=== PATIENT | female | born 1980 | race Caucasian/White ===

== ENCOUNTER 2016-07-26 12:20 | Emergency (ER) | payer OTHER ==
[~2016-07-26] VITALS: Ht 154.9 cm; Wt 55.3 kg
[~2016-07-26 12:20] MED LIST: FIORICET1 EA ORAL; KEFLEX500 MG ORAL; PEPCID20 MG ORAL; ROBAXIN500 MG PO; VISTARIL50 MG ORAL
[2016-07-26] MEDS ORDERED: GABAPENTIN100 MG ORAL (12:39)
[2016-07-26 12:59] VITALS: BP 110/72
[2016-07-26] MEDS ORDERED: Ketorolac 60mg Inj IM ONE (13:15)
--- NOTE | 2016-07-26 13:20 | Emergency Room Report ---
History of Present Illness General Chief Complaint: General Complaint Source: Patient Present Illness HPI 36-year-old male presents emergency department complaining of constant with intermittent exacerbations of pain shooting from the right axilla and to the top of the right breast x3 days. Patient denies injury or fall or appreciable straining. 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 Patient denies erythema, fevers, increased temperature palpation about the area. Patient states she is currently on her period and she does usually get some breast tenderness however she states that the area of her pain is unusual to her she typically has tenderness. She states pain is exacerbated with palpation, or movement of the right arm. She also reports soft tissue swelling in the posterior left knee x2 weeks. Patient denies calf tenderness, she denies taking control supplementation and denies recent travel denies swelling of the lower extremity. Pt also reports increased frequency with urination, denies dysuria , denies d/c, denies hx of lesions or sti. denies as she is on her period. Patient denies pain at the site behind the knee. Denies CP, Palpitations, LOC, AMS, dizziness, Changes in Vision, Sensation , paresthesias, or a sudden severe headache. Allergies: Coded Allergies: No Known Allergies (Unverified , 09/22/15) Patient History Past Medical History: see triage record Past Surgical History: none Pertinent Family History: none Last Menstrual Period: on period Now: No Immunizations: UTD Reviewed Nursing Documentation: PMH: Agreed, PSxH: Agreed Nursing Documentation-PM Past Medical History: No History, Except For Hx Neurological Problems: Yes - headache Review of Systems All Other Systems: negative except mentioned in HPI Physical Exam Vital Signs Date Time Temp Pulse Resp B/P Pulse Ox O2 Delivery O2 Flow Rate FiO2 07/26/16 12:35 99.0 83 16 105/68 100 Room Air Sp02 EP Interpretation: reviewed, normal General Appearance: no apparent distress, alert, GCS 15, non-toxic Head: normocephalic, atraumatic Eyes: bilateral eye PERRL, bilateral eye normal inspection ENT: hearing grossly normal, normal pharynx, no angioedema, normal voice Neck: full range of motion, supple/symm/no masses Respiratory: chest non-tender, lungs clear, normal breath sounds, speaking full sentences Cardiovascular #1: regular rate, rhythm, no edema Cardiovascular #2: 2+ radial (R), 2+ radial (L) Gastrointestinal: normal bowel sounds, non tender, soft, no guarding, no rebound Rectal: deferred Genitourinary: normal inspection, no CVA tenderness Musculoskeletal: back normal, gait/station normal, normal range of motion, no calf tenderness, other - palpable soft tissue swelling localized in the posterior knee, no pain, no palpable pulse. , tender - TTP to the right Pectoralis muscle, no erythema, no bruising, no lesions or masses, no LAD. Neurologic: alert, oriented x3, responsive, motor strength/tone normal, sensory intact, speech normal Psychiatric: judgement/insight normal, memory normal, mood/affect normal, no suicidal/homicidal ideation Skin: normal color, no rash, warm/dry, well hydrated Lymphatic: no adenopathy Medical Decision Making PA Attestation Dr. corbett is my supervising Physician whom patient management has been discussed with. Diagnostic Impression: Primary Impression: Pectoralis major tendinitis Qualified Codes: M75.81 - Other shoulder lesions, right shoulder Additional Impression: Kaur's cyst of knee Qualified Codes: M71.22 - Synovial cyst of popliteal space [Kaur], left knee ER Course Pt. presents to the ED c/o 1 pain shooting from the right axilla and to the top of the right breast x3 days. 2) swelling to posterior left knee, no trauma, no pain, size of swelling changes intermittently and at times goes completely away. 3) frequency with urination. Ddx considered but are not limited to Fracture, dislocation, contusion, Sprain/ Strain/Spasm, kaur cyst, popliteal artery aneurysm. Vital signs: are WNL, pt. is afebrile H&PE are most consistent with backers cyst of the left knee, and myositis/ tendinitis of the pectoral muscle, given this pain is reproducible upon examination and lack of cardiac RF, cardiac pathology is of low suspicion at this time. no evidence of infection. ORDERS: - US not required, as DVT is not suspected, no palpable artery noted, and there is no symptom of pain. US imaging to confirm bakers cyst can be performed as an outpatient. d/w pt. and she agrees with proposed follow up plan. -UA: unremarkable, no evidence of infection., evidence of RBC's and occult blood consistent with being on period. ED INTERVENTIONS: - Bandar wrap is applied to the left knee by instructor technical training. pt. remained NVI both before and after application. DISCHARGE: At this time pt. is stable for d/c to home. Will provide printed patient care instructions, and any necessary prescriptions. Care plan and follow up instructions have been discussed with the patient prior to discharge. Labs Test 07/26/16 13:02 Urine Color Yellow Urine Appearance Clear Urine pH 7.0 (4.5-8.0) Urine Specific [place] 1.010 (1.005-1.035) Urine Protein Negative (NEGATIVE) Urine Glucose (UA) Negative (NEGATIVE) Urine Ketones Negative (NEGATIVE) Urine Occult Blood 3+ (NEGATIVE) Urine Nitrite Negative (NEGATIVE) Urine Bilirubin Negative (NEGATIVE) Urine Urobilinogen Normal MG/DL (0.0-1.0) Urine Leukocyte Esterase Negative (NEGATIVE) Urine RBC 5-10 /HPF (0 - 2) Urine WBC 2-4 /HPF (0 - 2) Urine Squamous Epithelial Cells Few /LPF (NONE/OCC) Urine Bacteria Few /HPF (NONE) Last Vital Signs Date Time Temp Pulse Resp B/P Pulse Ox O2 Delivery O2 Flow Rate FiO2 07/26/16 12:59 98.8 80 16 110/72 99 Room Air Disposition: HOME, SELF-CARE Condition: Stable Scripts Ibuprofen* (MOTRIN*) 600 Mg Tablet 600 MG ORAL THREE TIMES A DAY, #30 TAB 0 Refills Prov: Ellyn Lorenz 07/26/16 Patient Instructions: Kaur Cyst, Tendinitis Additional Instructions: Take medications as directed. You are currently stable for close Outpatient Follow up with PCP in 3-5 days Return sooner to ED if new symptoms occur, or current symptoms become worse. Ellyn Lorenz Jul 26, 2016 13:20
[2016-07-26 13:54] LABS: APPEARANCE,URINE CLEAR
[2016-07-26 13:55] LABS: BACTERIA,URINE FEW /HPF; KETONES,URINE NEGATIVE (NEGATIVE); LEUKOCYTE ESTERASE ,URINE NEGATIVE (NEGATIVE); NITRITE,URINE NEGATIVE (NEGATIVE); PROTEIN,URINE NEGATIVE (NEGATIVE); SQUAMOUS EPITHELIAL CELL,UR FEW /LPF (NONE/OCC); UROBILINOGEN,URINE NORMAL MG/DL (0.0-1.0)
[2016-07-26] MEDS ORDERED: IBUPROFEN600 MG ORAL (13:57)
[2016-07-26 14:15] VITALS: BP 109/69
== END 2016-07-26 14:12 | disposition home or self-care (01) ==
LOC: EMR 14:11
DX: M77.8 Other enthesopathies, not elsewhere classified (principal); M71.22 Synovial cyst of popliteal space [Baker], left knee; R35.0 Frequency of micturition
CPT/HCPCS: 81003; 96372; 99283

== ENCOUNTER 2016-09-03 12:05 | Emergency (ER) | payer OTHER ==
[~2016-09-03] VITALS: Ht 154.9 cm; Wt 55.3 kg
[~2016-09-03 12:05] MED LIST changes: +GABAPENTIN100 MG ORAL; +IBUPROFEN600 MG ORAL
--- NOTE | 2016-09-03 12:23 | Emergency Room Report ---
History of Present Illness General Chief Complaint: General Complaint Source: Patient Present Illness HPI 36 YO Female presents to the ED c/o fatigue, weakness, and PCP wants her evaluated for anemia, pt. has nausea, no vomiting, intermittent RUQ abdominal pain. Pt. also states hx of GERD and H.Pylori and states she is having 7/10 in severity burning epigastric pain radiating up into the throat and towards her back worse at night x 1 week. Pt denies recent URI or illness. Pt states she was told she is low ferritin. denies hx of cardiac disease, no familial cardiac diseases. Pt. denies . denies recent travel or ill contacts. Pt also reports recurrent slowly progressive GUERRA rated as 8/10 in severity Denies CP, Palpitations, LOC, AMS, dizziness, Changes in Vision, Sensation, paresthesias, or a sudden severe headache. Allergies: Coded Allergies: No Known Allergies (Unverified , 09/22/15) Patient History Past Medical History: see triage record Past Surgical History: none Pertinent Family History: none Immunizations: UTD Reviewed Nursing Documentation: PMH: Agreed, PSxH: Agreed Nursing Documentation-PMH Past Medical History: No Stated History Hx Neurological Problems: Yes - headache Review of Systems All Other Systems: negative except mentioned in HPI Physical Exam Vital Signs Date Time Temp Pulse Resp B/P Pulse Ox O2 Delivery O2 Flow Rate FiO2 09/03/16 12:08 97.9 67 20 112/64 100 Room Air Sp02 EP Interpretation: reviewed, normal General Appearance: no apparent distress, alert, GCS 15, non-toxic Head: normocephalic, atraumatic Eyes: bilateral eye PERRL, bilateral eye normal inspection ENT: hearing grossly normal, normal pharynx, no angioedema, normal voice Neck: full range of motion, supple/symm/no masses Respiratory: chest non-tender, lungs clear, normal breath sounds, speaking full sentences Cardiovascular #1: regular rate, rhythm, no edema Gastrointestinal: normal bowel sounds, non tender, soft, no guarding, no rebound, other - Mild epigastric TTP,Negative [place] signs, Negative MacBurney' s sign, Negative [place]igns Sign, Negative Psoas, No Peritoneal signs. Rectal: deferred Genitourinary: normal inspection, no CVA tenderness Musculoskeletal: back normal, gait/station normal, normal range of motion, non- tender Neurologic: alert, oriented x3, responsive, motor strength/tone normal, sensory intact, speech normal Psychiatric: judgement/insight normal, memory normal, mood/affect normal, no suicidal/homicidal ideation Skin: normal color, no rash, warm/dry, well hydrated Lymphatic: no adenopathy Medical Decision Making PA Attestation Dr. Banegas is my supervising Physician whom patient management has been discussed with. Diagnostic Impression: Primary Impression: Weakness generalized Additional Impressions: Abdominal pain Qualified Codes: R10.11 - Right upper quadrant pain Hx of gastroesophageal reflux (GERD) ER Course Pt. presents to the ED c/o fatigue, weakness, and PCP wants her evaluated for anemia, pt. has nausea, no vomiting, intermittent RUQ abdominal pain. - Pt. reports recurrent GUERRA Ddx considered but are not limited to Diverticulitis, acute appy, diarrhea,UC, PUD, GE, pancreatitis, gallstone Vital signs: are WNL, pt. is afebrile H&PE are most consistent with ---- no focal neurological deficits, benign abdominal Exam. pt. non-toxic in appearance. ORDERS: CBC, CMP, lipase, UA, Urine HCG: all unremarkable ED INTERVENTIONS: -EKG: NSR 67BPM, no St changes - interpreted by Dr. Banegas -- 500cc NS Bolus. -10mg Reglan -30mg Toradol I do not suspect an emergent condition at this time. with current presentation pt. is stable for close outpatient follow up. DISCHARGE: At this time pt. is stable for d/c to home. Will provide printed patient care instructions, and any necessary prescriptions. Care plan and follow up instructions have been discussed with the patient prior to discharge. Labs Test 09/03/16 13:20 09/03/16 14:04 White Blood Count 5.2 K/UL (4.8-10.8) Red Blood Count 4.16 M/UL (4.20-5.40) Hemoglobin 12.4 G/DL (12.0-16.0) Hematocrit 37.6 % (37.0-47.0) Mean Corpuscular Volume 90 FL (80-99) Mean Corpuscular Hemoglobin 29.8 PG (27.0-31.0) Mean Corpuscular Hemoglobin Concent 33.0 G/DL (32.0-36.0) Red Cell Distribution Width 12.1 % (11.6-14.8) Platelet Count 236 K/UL (150-450) Mean Platelet Volume 12.5 FL (6.5-10.1) Neutrophils (%) (Auto) 46.0 % (45.0-75.0) Lymphocytes (%) (Auto) 45.3 % (20.0-45.0) Monocytes (%) (Auto) 6.3 % (1.0-10.0) Eosinophils (%) (Auto) 1.2 % (0.0-3.0) Basophils (%) (Auto) 1.2 % (0.0-2.0) Sodium Level 139 mEQ/L (135-145) Potassium Level 3.8 mEQ/L (3.4-4.9) Chloride Level 100 mEQ/L (98-107) Carbon Dioxide Level 26 mEQ/L (20-30) Anion Gap 13 (5-15) Blood Urea Nitrogen 10 mg/dL (7-23) Creatinine 0.6 mg/dL (0.5-0.9) Estimat Glomerular Filtration Rate > 60 mL/min (>60) Glucose Level 86 mg/dL (74-106) Calcium Level 9.5 mg/dL (8.6-10.2) Total Bilirubin 0.3 mg/dL (0.0-1.2) Aspartate Amino Transf (AST/SGOT) 24 U/L (5-40) Alanine Aminotransferase (ALT/SGPT) 26 U/L (3-33) Alkaline Phosphatase 90 U/L (35-104) Total Protein 7.5 g/dL (6.6-8.7) Albumin 4.2 g/dL (3.5-5.2) Globulin 3.3 g/dL Albumin/Globulin Ratio 1.2 (1.0-2.7) Lipase 26 U/L (< 60) Urine Color Pale yellow Urine Appearance Clear Urine pH 7 (4.5-8.0) Urine Specific [place] 1.005 (1.005-1.035) Urine Protein Negative (NEGATIVE) Urine Glucose (UA) Negative (NEGATIVE) Urine Ketones Negative (NEGATIVE) Urine Occult Blood Negative (NEGATIVE) Urine Nitrite Negative (NEGATIVE) Urine Bilirubin Negative (NEGATIVE) Urine Urobilinogen Normal MG/DL (0.0-1.0) Urine Leukocyte Esterase 1+ (NEGATIVE) Urine RBC 0-2 /HPF (0 - 2) Urine WBC 2-4 /HPF (0 - 2) Urine Squamous Epithelial Cells Few /LPF (NONE/OCC) Urine Bacteria Few /HPF (NONE) Urine HCG, Qualitative Negative EKG Diagnostic Results EP Interpretation: interpreted by Dr. Banegas Rate: normal - 67 BPM Rhythm: NSR ST Segments: no acute changes ASA given to the pt in ED: No PA Scribe Text EKG was interpreted by Dr. Banegas Last Vital Signs Date Time Temp Pulse Resp B/P Pulse Ox O2 Delivery O2 Flow Rate FiO2 09/03/16 12:08 97.9 67 20 112/64 100 Room Air Disposition: HOME, SELF-CARE Condition: Stable Scripts Ranitidine Hcl* (ZANTAC*) 150 Mg Tablet 150 MG ORAL TWICE A DAY for 7 Days, #14 TAB Prov: Ellyn Lorenz 09/03/16 Patient Instructions: Abdominal Pain, Adult, [id number], Weakness, Easy-to- Read Additional Instructions: Take medications as directed. Follow up with PCP in 3-5 days Return sooner to ED if new symptoms occur, or current symptoms become worse. - Please note that this Emergency Department Report was dictated using [employer] technology software, occasionally this can lead to erroneous entry secondary to interpretation by the dictation equipment. Ellyn Lorenz Sep 03, 2016 12:23
[2016-09-03 14:13] LABS: BASOPHILS % (AUTO) 1.2 % (0.0-2.0); EOSINOPHILS % (AUTO) 1.2 % (0.0-3.0); LYMPHOCYTES % (AUTO) 45.3 % (20.0-45.0); MEAN CORPUSCULAR HEMOGLOBIN 29.8 PG (27.0-31.0); MEAN CORPUSCULAR VOLUME 90 FL (80-99); MEAN PLATELET VOLUME 12.5 FL (6.5-10.1); MONOCYTES % (AUTO) 6.3 % (1.0-10.0); PLATELET COUNT 236 K/UL (150-450); RED BLOOD COUNT 4.16 M/UL (4.20-5.40); RED CELL DISTRIBUTION WIDTH 12.1 % (11.6-14.8); WHITE BLOOD COUNT 5.2 K/UL (4.8-10.8)
[2016-09-03 14:21] LABS: ALANINE AMINOTRANSFERASE 26 U/L (3-33); ALBUMIN/GLOBULIN RATIO 1.2 (1.0-2.7); ANION GAP 13 (5-15); ASPARTATE AMINO TRANSFERASE 24 U/L (5-40); CALCIUM 9.5 mg/dL (8.6-10.2); CARBON DIOXIDE 26 mEQ/L (20-30); CHLORIDE 100 mEQ/L (98-107); CREATININE 0.6 mg/dL (0.5-0.9); GLOMERULAR FILTRATION RATE > 60 mL/min (>60); HEMOLYSIS 7; LIPASE 26 U/L (< 60); POTASSIUM 3.8 mEQ/L (3.4-4.9); SODIUM 139 mEQ/L (135-145); TOTAL PROTEIN 7.5 g/dL (6.6-8.7)
[2016-09-03 14:32] LABS: APPEARANCE,URINE CLEAR; KETONES,URINE NEGATIVE (NEGATIVE); NITRITE,URINE NEGATIVE (NEGATIVE); PH,URINE 7 (4.5-8.0); PROTEIN,URINE NEGATIVE (NEGATIVE); UROBILINOGEN,URINE NORMAL MG/DL (0.0-1.0)
[2016-09-03 14:45] LABS: LEUKOCYTE ESTERASE ,URINE 1+ (NEGATIVE)
[2016-09-03 14:46] LABS: BACTERIA,URINE FEW /HPF; RBC,URINE 0-2 /HPF (0 - 2); SQUAMOUS EPITHELIAL CELL,UR FEW /LPF (NONE/OCC)
[2016-09-03] MEDS ORDERED: Ketorolac 30mg Inj IV ONE (15:15)
[2016-09-03] MEDS ORDERED: Metoclopramide 10mg/2ml Inj IVP ONE (15:15)
[2016-09-03] MEDS ORDERED: ZANTAC150 MG ORAL (15:20)
[2016-09-03 16:01] VITALS: BP 114/67
[2016-09-03 16:02] VITALS: BP 114/67
--- NOTE | 2016-09-09 11:50 | Cardiology Report ---
APPROVED REPORT EKG Measurement Heart [id number] Normal sinus rhythm Normal ECG
== END 2016-09-03 16:04 | disposition home or self-care (01) ==
LOC: EMR 12:40
DX: R53.1 Weakness (principal); R10.11 Right upper quadrant pain; K21.9 Gastro-esophageal reflux disease without esophagitis
CPT/HCPCS: 36415; 80053; 81003; 81025; 83690; 85025; 93005; 96360; 96374; 96375; 99284; J1885; J2765; J7040

== ENCOUNTER 2018-08-22 06:59 | Emergency (ER) | payer BC, OTHER ==
[~2018-08-22] VITALS: Ht 154.9 cm; Wt 58.5 kg
[~2018-08-22 06:59] MED LIST changes: +ZANTAC150 MG ORAL
[2018-08-22 07:08] VITALS: BP 106/60
[2018-08-22] MEDS ORDERED: OMEPRAZOLE20 M2 ORAL (07:13)
--- NOTE | 2018-08-22 07:18 | NUR ---
ED Nurse Note: Pt came in due to pressure head ache since this morning and sore throat. Pt admits to drinking 3 beers last night. No N/V/D.
--- NOTE | 2018-08-22 07:24 | Emergency Room Report ---
History of Present Illness General Chief Complaint: Headache Source: Patient Present Illness HPI Patient present with complaints of pain and pressure to the top of her head patient reports that she had a sore throat and had try to take Motrin however She was having a difficult time swallowing given the pain Denies any chest pain denies any shortness of breath Patient reports that she had contacted the nurse line and told to present to the emergency room Denies any focal weakness Patient reports that her hearing was also affected at that time she had a headache and now started to improve Denies any neck pain or photophobia Allergies: Coded Allergies: No Known Allergies (Unverified , 09/22/15) Patient History Past Medical History: see triage record Pertinent Family History: none Last Menstrual Period: 08/11/18 Reviewed Nursing Documentation: PMH: Agreed; PSxH: Agreed Nursing Documentation-PMH Past Medical History: No History, Except For Hx Neurological Problems: Yes - headache Review of Systems All Other Systems: negative except mentioned in HPI Physical Exam Vital Signs Date Time Temp Pulse Resp B/P (MAP) Pulse Ox O2 Delivery O2 Flow Rate FiO2 08/22/18 07:08 98.4 18 106/60 99 Room Air 08/22/18 07:08 80 Sp02 EP Interpretation: reviewed, normal General Appearance: well appearing, no apparent distress Head: normocephalic, atraumatic Eyes: bilateral eye PERRL, bilateral eye EOMI ENT: hearing grossly normal, normal pharynx, TMs + canals normal, uvula midline Neck: full range of motion, supple, no meningismus, no bony tend Respiratory: lungs clear, normal breath sounds, no rhonchi, no respiratory distress, no retraction, no accessory muscle use Cardiovascular #1: normal peripheral pulses, regular rate, rhythm, no edema, no gallop, no JVD, no murmur Gastrointestinal: normal bowel sounds, non tender, soft, no mass, no organomegaly, non-distended, no guarding, no hernia, no pulsatile mass, no rebound Genitourinary: no CVA tenderness Musculoskeletal: normal inspection Neurologic: oriented x3, responsive, chainstitch pants outseamer III-XII nml as tested, motor strength/ tone normal, sensory intact Psychiatric: mood/affect normal Skin: normal color, no rash, warm/dry, palpation normal Lymphatic: normal inspection, no adenopathy Medical Decision Making Diagnostic Impression: Primary Impression: Headache ER Course Given the history exam and presentation multiple differentials are considered Including but not limited to neurological, neurosurgical infectious pathology Patient also reports that she had drank alcohol yesterday which she feels contributed to some of her symptoms Patient has a benign neurological exam does not meet criteria for acute imaging Patient was provided with pain medication and is stable for close outpatient follow-up, Last Vital Signs Date Time Temp Pulse Resp B/P (MAP) Pulse Ox O2 Delivery O2 Flow Rate FiO2 08/22/18 07:08 98.4 80 18 106/60 99 Room Air Status: improved Disposition: HOME, SELF-CARE Condition: Improved Additional Instructions: Patient is provided with the discharge instructions notified to follow up with primary doctor in the next 2-3 days otherwise return to the er with any worsening symptoms. Please note that this report is being documented using [employer] technology. This can lead to erroneous entry secondary to incorrect interpretation by the dictating instrument. Bell Michaud DO Aug 22, 2018 07:24
[2018-08-22] MEDS ORDERED: Ketorolac 60mg Inj IM ONE (07:30)
[2018-08-22 07:56] VITALS: BP 115/72
--- NOTE | 2018-08-22 07:56 | NUR ---
ED Nurse Note: Pt cleared by health care provider for discharge. DC instructions was given and explained to pt and verbalized understanding of teachings. All center medical and lab director such as ID band removed. Pt is AAO x4, ambulatory and left with all personal belongings.
== END 2018-08-22 07:56 | disposition home or self-care (01) ==
LOC: EMR 07:15
DX: R51 Headache (principal)
CPT/HCPCS: 96372; 99283